=== PATIENT | male | born 1980 | race Caucasian/White ===

== ENCOUNTER → 2020-09-09 06:22 | Outpatient (REF) | payer BC, SELFPAY ==
[2020-09-09 06:57] LABS: Basophils Percent Auto 0.4 % (0-2); Eosinophils Absolute Auto 0.1 X10*3/uL (0.0-0.4); Eosinophils Percent Auto 2.2 % (0-4); Hematocrit 42.1 % (42-52); Hemoglobin 14.9 g/dl (14.0-18.0); Imm Gran Abs Auto 0.01 X10*3/uL (0.00-0.03); Imm Gran Pct Auto 0.2 % (0.0-0.4); Lymphocytes Absolute Auto 1.4 X10*3/uL (1.2-4.9); Lymphocytes Percent Auto 31.5 % (20-40); MANUAL DIFF FLAG NO; Mean Corpuscular HGB Conc 35.4 g/dl (31.0-36.0); Mean Corpuscular Hemoglobin 31.2 pg (27.0-33.0); Mean Corpuscular Volume 88.3 fL (80-98); Mean Platelet Volume 9.1 fL (9.4-12.4); Monocytes Absolute Auto 0.5 X10*3/uL (0.1-1.2); Monocytes Percent Auto 11.4 % (2-11); Neutrophils Absolute Auto 2.4 X10*3/uL (2.0-8.3); Neutrophils Percent Auto 54.3 % (45-73); Platelet Count 202 X10*3/uL (160-400); Red Blood Count 4.77 X10*6/uL (4.60-5.80); Red Cell Distribution Width 12.3 % (11.0-16.0); White Blood Count 4.5 X10*3/uL (4.8-10.8)
--- NOTE | 2020-09-09 07:30 | CA_ITS ---
Transthoracic Echocardiogram Patient (Last, First, Middle): Fortino Glover A Gender: Male Date of : 1980 Age: 40 Procedure Date: 09/09/2020 Procedure Type: Transthoracic Echocardiogram Location: OP Height: 180.34 cm Weight: 113.4 kg BSA: 2.32 m2 Heart Rate: bpm BP: 160 / 90 mmHg Valuer: BRUCE Referring MD: Jeremie Bedoya MD Symptoms: I10 HTN, I45.10 RBBB I44.4 L ANT FASC BLOCK Study Quality: Fair ECG Rhythm: Sinus Conclusions: - The left ventricular systolic function is normal. The visually estimated ejection fraction is between 60-65%. - No obvious valvular pathology seen on this study. Findings Left Ventricle Normal left ventricular cavity size. There is normal left ventricular wall thickness. The left ventricular systolic function is normal. The visually estimated ejection fraction is between 60-65%. There is no evidence of regional wall motion abnormalities. Diastolic function is normal for age. Right Ventricle Normal right ventricular cavity size and systolic function. Atria The left atrium is normal in size. The right atrium is normal in size. Aortic Valve There is a normal trileaflet aortic valve. There is no aortic valve stenosis. There is no aortic valve regurgitation. Mitral Valve The mitral valve appears normal. There is trace mitral valve regurgitation. There is no mitral valve stenosis. Pulmonic Valve The pulmonic valve was not well visualized. Tricuspid Valve Normal tricuspid valve structure. There is trace tricuspid valve regurgitation. The pulmonary artery systolic pressure is normal. Great Vessels The aortic annulus, sinuses of valsalva, and asc aorta are normal in size. Venous The inferior vena cava is normal in size and collapses greater than 50% with inspiration. Pericardium/Pleural There is no evidence of pericardial effusion. Prior Study Comparison No prior study available for comparison. Recommendations, Care & Conclusions No obvious valvular pathology seen on this study. Measurements 2D Linear Measurements IVSd: 1.01 0.6-0.9/0.6-1.0 cm LVIDd: 5.24 3.9-5.3/4.2-5.9 cm LVIDs: 3.34 2.0-3.6 cm LVPWd: 1.02 0.7-1.1 cm Ao Root: 4.01 2.1-3.5 cm LV Mass: 250.53 67-162/88-224 g LVOT Diam: 2.39 3.0+(-)1.3 cm Mitral Valve MV Pk E: 0.78 MV PK A: 0.72 MV Decel Time: 280.24 E/A: 1.08 E'Lateral: 0.11 E'Medial: 0.09 Decel Loving: 2.77 Aortic Valve AoV Pk Rigoberto: 1.50 AoV Mn Rigoberto: 0.98 AoV VTI: 0.29 AoV Pk Grad: 9.04 Aov Mn Grad: 4.40 LVOT LVOT Pk Rigoberto: 1.25 LVOT Mn Rigoberto: 0.79 LVOT VTI: 0.24 LVOT Pk Grad: 6.23 LVOT Mn Grad: 2.94 LVOT Diam: 2.39 LVOT Area: 4.49 Diastolic Function MV Pk E: 0.78 MV Pk A: 0.72 E/A: 1.08 E'Medial: 0.09 E' Laterial: 0.11 Tricuspid Valve TR Pk Rigoberto: 2.22 TR Pk Grad: 19.71 RA Press: 3.00 RVSP: 23.00 Great Vessels Aorta Ao Root-2D: 4.01 2.0-3.7 cm Ao Asc: 3.39 2.1-3.4 cm Ao Arch: 3.35 Updated in Other Vendor System with Status of Final Desmond Olivares MD electronically signed on 09/09/2020 8:57:00 AM with status of Final
[2020-09-09 07:33] LABS: Alanine Aminotransferase 44 U/L (0-40); Albumin Level 4.5 g/dL (3.5-5.0); Alkaline Phosphatase 48 U/L (39-117); Anion Gap 12 (12-20); Aspartate Amino Transferase 24 U/L (5-37); Bilirubin Total 1.2 mg/dL (0.0-1.0); Blood Urea Nitrogen 16 mg/dL (9-16); Calcium 8.8 mg/dL (8.4-10.2); Carbon Dioxide 27 mmol/L (22-29); Chloride 103 mmol/L (96-108); Cholesterol 184 mg/dL; Estimated Glomerular Filt Rate > 60; Glucose Random 121 mg/dL (60-115); HDL Cholesterol 31 mg/dL; LDL Cholesterol Calculated 122 mg/dl; Sodium 138 mmol/L (135-145); Total Protein 7.2 g/dL (6.5-8.0); Triglycerides 159 mg/dL
[2020-09-09 07:58] LABS: Free T4 (Free Thyroxine) 1.05 ng/dL (0.71-1.85); Thyroid Stimulating Hormone 1.49 uIU/mL (0.32-4.0)
== END ==
LOC: HO.CARD 06:22
PROVIDERS: PCP Internal Medicine; Visit Provider Internal Medicine
DX: I45.10 Unspecified right bundle-branch block (principal); I10 Essential (primary) hypertension; I44.4 Left anterior fascicular block; E78.00 Pure hypercholesterolemia, unspecified
CPT/HCPCS: 36415; 80053; 80061; 84439; 84443; 85025; 93306